=== PATIENT | female | born 1980 | race African-American/Black ===

== ENCOUNTER 2018-12-27 13:06 | Emergency (ER) | payer MEDICAID ==
[~2018-12-27] VITALS: Ht 162.6 cm; Wt 79.8 kg
[~2018-12-27 13:06] MED LIST: ASACOL HD800 MG ORAL
[2018-12-27 13:14] VITALS: BP 130/69
--- NOTE | 2018-12-27 13:19 | NUR ---
ED Nurse Note: patient walked into ED from home due to left earache since this morning. patient is alert awake x4 ambulatory, breathing even and unlabored
--- NOTE | 2018-12-27 13:27 | Emergency Room Report ---
History of Present Illness General Chief Complaint: Earache Source: Patient Present Illness HPI 38-year-old female presents to the emergency department complaining of 9 out of 10 in severity progressive pain in the left ear since this morning. Patient reports last few days she had upper respiratory symptoms with nasal congestion, rhinorrhea and cough. Patient reports subjective fevers and chills. Patient states that she has muffled hearing out of the affected ear. Patient denies headache, dizziness, tinnitus, swollen tender lymph nodes, neck pain/stiffness or photophobia. Patient denies trauma to the ear. She states she has not been trying any bgrv-dtn-lvsvodo medications and therefore has not found any relieving factors. Patient reports bending forward can exacerbate her symptom of pressure sensation. Allergies: Coded Allergies: No Known Allergies (Unverified , 09/01/13) Patient History Past Surgical History: unable to obtain Pertinent Family History: none Last Menstrual Period: 12/25/18 Now: No Reviewed Nursing Documentation: PMH: Agreed; PSxH: Agreed Nursing Documentation-PMH Past Medical History: No History, Except For Hx Gastrointestinal Problems: Yes - ULCERATIVE COLITIS Review of Systems All Other Systems: negative except mentioned in HPI Physical Exam Vital Signs Date Time Temp Pulse Resp B/P (MAP) Pulse Ox O2 Delivery O2 Flow Rate FiO2 12/27/18 13:14 98.1 84 20 130/69 97 Room Air Sp02 EP Interpretation: reviewed, normal General Appearance: no apparent distress, alert, GCS 15, non-toxic Head: normocephalic, atraumatic Eyes: bilateral eye normal inspection, bilateral eye PERRL ENT: hearing grossly normal, normal voice, other - LEft TM erythematous and bulging, some congestion noted behind the memebrane, no perforation, normal canal. Neck: full range of motion, no meningismus Respiratory: chest non-tender, lungs clear, normal breath sounds, no respiratory distress, no wheezing, speaking full sentences Cardiovascular #1: regular rate, rhythm, no edema Musculoskeletal: back normal, gait/station normal, normal range of motion Neurologic: alert, oriented x3, responsive, motor strength/tone normal, sensory intact, normal gait, speech normal, grossly normal Psychiatric: judgement/insight normal Skin: normal color, no rash, warm/dry, well hydrated Lymphatic: no adenopathy Medical Decision Making PA Attestation Dr. Chaparro is my supervising Physician whom patient management has been discussed with. Diagnostic Impression: Primary Impression: Otitis media ER Course 38-year-old female presents to the emergency department complaining of 9 out of 10 in severity progressive pain in the left ear since this morning. Patient reports last few days she had upper respiratory symptoms with nasal congestion, rhinorrhea and cough. Patient reports subjective fevers and chills. Patient states that she has muffled hearing out of the affected ear. Patient denies headache, dizziness, tinnitus, swollen tender lymph nodes, neck pain/stiffness or photophobia. Patient denies trauma to the ear. She states she has not been trying any wzif-ovr-cbqtpep medications and therefore has not found any relieving factors. Patient reports bending forward can exacerbate her symptom of pressure sensation. Ddx considered but are not limited to OM, OE, mastoiditis, TM perforation, FB Vital signs: are WNL, pt. is afebrile H&PE are most consistent with otitis media with moderate nasal/ sinus congestion. ORDERS: none required at this time, the diagnosis is clinical ED INTERVENTIONS: None required at this time. DISCHARGE: At this time pt. is stable for d/c to home. With PO ABX. Will provide printed patient care instructions, and any necessary prescriptions. Care plan and follow up instructions have been discussed with the patient prior to discharge. Last Vital Signs Date Time Temp Pulse Resp B/P (MAP) Pulse Ox O2 Delivery O2 Flow Rate FiO2 12/27/18 13:14 98.1 84 20 130/69 97 Room Air Disposition: HOME, SELF-CARE Condition: Stable Departure Forms: Return to Work Return to Work Date: December 29, 2018 Work Restrictions: None Other Restrictions: May return Sooner if Symptoms have resolved. Return to Full Activity: December 29, 2018 Patient Instructions: Otitis Media, Adult, [id number] Additional Instructions: Take medications as directed. Follow up with a Primary Care Provider in 3-5 days, even if your symptoms have resolved. --Please review list of primary care clinics, if you do not already have a primary care provider Return sooner to ED if new symptoms occur, or current symptoms become worse. - Please note that this Emergency Department Report was dictated using [employer] software, occasionally this can lead to erroneous entry secondary to interpretation by the dictation equipment. Becky Estes Dec 27, 2018 13:27
[2018-12-27] MEDS ORDERED: TYLENOL EXTRA500 MG ORAL (13:28)
[2018-12-27] MEDS ORDERED: NEXAFED30 MG ORAL (13:28)
[2018-12-27] MEDS ORDERED: AUGMENTIN 875-1 EAC1 ORAL (13:28)
[2018-12-27 13:37] VITALS: BP 130/69
--- NOTE | 2018-12-27 13:37 | NUR ---
ER DISCHARGE NOTE: Patient is cleared to be discharged per ERMD, pt is aox4, on room air, with stable vital signs. pt was given dc and prescription instructions, pt was able to verbalize understanding, pt id band removed without complications. pt is able to ambulate with steady gait. pt took all belongings.
== END 2018-12-27 13:37 | disposition home or self-care (01) ==
LOC: EMR 13:25
DX: H66.92 Otitis media, unspecified, left ear (principal); R05 Cough
CPT/HCPCS: 99282

== ENCOUNTER 2020-09-05 09:32 | Emergency (ER) | payer MEDICAID ==
[~2020-09-05] VITALS: Ht 162.6 cm; Wt 80.7 kg
[~2020-09-05 09:32] MED LIST changes: +AUGMENTIN 875-1 EAC1 ORAL; +NEXAFED30 MG ORAL; +TYLENOL EXTRA500 MG ORAL
--- NOTE | 2020-09-05 10:10 | NUR ---
ED Nurse Note: pt states she woke up with muscle ache and painful to move left shoulder since thursday.denies dyspnea, fever or cough. no n/v a/ox4 speaks full sentences easily.
[2020-09-05 10:16] VITALS: BP 128/84
[2020-09-05] MEDS ORDERED: TYLENOL EXTRA500 MG ORAL (11:39)
[2020-09-05] MEDS ORDERED: ROBAXIN-750750 MG PO (11:39)
--- NOTE | 2020-09-05 11:39 | Emergency Room Report ---
History of Present Illness General Chief Complaint: Pain Source: Patient Present Illness HPI Patient is a 40-year-old -Polish female with no prior medical history who presents with complaint of left shoulder pain, atraumatic, x3 days. She states that the shoulder pain is worse at night and upon waking up. She tried some stretches which temporarily alleviated her pain. Has not tried any medication at home She denies chest pain, abdominal pain, flank pain, trauma, nausea, vomiting, diarrhea, melena, hematochezia, hemoptysis, fever, numbness, paresthesia or any other symptoms The patient's symptoms were gradual onset, severity was moderate, duration since 3 days. Quality: "Knots", aching Past medical history: Denies Past surgical history: Right thumb surgery Smoking: Denies Alcohol use: Denies Drug use: Denies Review of systems: CONST: No fevers or chills, No night sweats PULMONARY: No productive cough, No shortness of breath CARDIAC: No chest pain, No palpitations GI: No vomiting, No diarrhea , No melena_or_BRBPR : No dysuria, No hematuria, No discharge NEURO: No new_focal_weakness_or_numbness, No confusion, No vision changes 14 point Review of Systems is otherwise negative except per HPI Physical Exam: GENERAL: Awake_alert_ nontoxic, no acute distress Spo2 98% on RA -normal EYES: Extraocular muscles are intact. Conjunctivae clear. Lids without swelling ENT: External nose and ear normal_in_appearance. Oropharynx clear. Head_atraumatic, Moist_oral_mucosa NECK: No JVD. No meningismus. No thyromegaly. Supple. Trachea midline RESP: Normal respiratory effort. Symmetric rise. No stridor. Clear_to_auscultation_No_rales_No_wheezes CARDIAC: Regular rate and regular rhytm. No_significant pedal edema. ABDOMEN: Soft. Nondistended. Nontender_No_rebound_or_guarding. MSK: Normal muscle tone, without rigidity. Extremities without asymmetric deformity or swelling. Upper extremity exam: Left Tenderness to palpation of left scapular ridge with hypertonicity of the trapezius muscle Elbow: No swelling / effusion appreciated, no significant pain with passive range of motion Wrist: No swelling / effusion appreciated, no significant pain with passive range of motion Lateral epicondyle: no tenderness / swelling / ecchymoses Medial epicondyle: no tenderness / swelling / ecchymoses Radial pulse: 2+ Capillary refill: <3 seconds in all fingers All fingers: full range of motion without any tenderness / swelling / deformity / evidence of infection Scaphoid: no tenderness / swelling / ecchymoses, no pain with axial loading of the thumb Radian / Median / Ulnar nerves: all intact (finger opposition, finger adduction / abduction, thumb dorsiflexion) Sensation intact to light touch: in all fingers Strength 5/5 with: wrist dorsi / volar flexion, 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 No visible cyanosis or pallor NEUROLOGIC: Alert, oriented x4. Motor_and_sensation_grossly_intact. No truncal ataxia. Gait_normal Psych: Normal mood and affect, normal judgment and insight - COORDINATION OF CARE Case was discussed with: Patient Any imaging that were ordered were interpreted as part of the medical decision making: Medical Decision Making/Plan: Differential diagnosis includes musculoskeletal pain, fracture, dislocation, compartment syndrome, arterial occlusion, nerve damage, among others. Patient is well-appearing, afebrile, neurologically intact in the left upper extremity. She is noted to have tenderness to palpation with hypertonicity of the left trapezius muscle. Compartments are soft and compressible. Distally the patient has capillary refill <2 seconds and strong pulses. There is no pallor or pain out of proportion to exam. There is no significant swelling, deformity, or report of significant dislocation that subsequently reduced. No evidence of arterial occlusion or injury. The associated joints have full range of motion without any significant pain or restriction in mobility. No evidence at this time of major ligamentous disruption. Patient is afebrile. Doubt septic joint Xrays of the left shoulder are within normal limits, compartments are soft, the patient is able to bear weight and has no neurologic deficits. No evidence of fracture, dislocation, foreign body, significant nerve damage, compartment syndrome at this time. I suspect musculoskeletal pain. We will give muscle relaxant and Tylenol. Patient was instructed not to take the muscle relaxant and drive as it is potentially sedating. Do not combine with alcohol. However, the patient was informed that occult fractures or foreign bodies are not always apparent on their first visit and understand to follow up with their regular doctor for a reevaluation within the next 2-3 days, to ensure their symptoms completely resolve. Pertinent results reviewed with the patient. I educated the patient on the current treatment plan including the risks, benefits, and alternatives. I also discussed the extent and limitations of the current evaluation. The patient expressed understanding and agreement with plan. I recommended PMD follow-up wi thin 1-2 days. Also advised that the patient return to the Emergency Department as soon as possible if they experience any new, persistent, or worsening symptoms. Allergies: Coded Allergies: No Known Allergies (Unverified , 09/01/13) COVID-19 Screening Contact w/high risk pt: No Experienced COVID-19 symptoms?: No COVID-19 Testing performed [employer]: Yes COVID-19 Screening: Negative COVID-19 COVID-19 Testing Source: [employer] Patient History Last Menstrual Period: 08/27/20 Now: No Nursing Documentation-PMH Past Medical History: No Stated History Hx Gastrointestinal Problems: Yes - ULCERATIVE COLITIS Physical Exam Vital Signs Date Time Temp Pulse Resp B/P (MAP) Pulse Ox O2 Delivery O2 Flow Rate FiO2 09/05/20 09:43 98.2 91 20 128/84 (99) 97 Room Air Sp02 EP Interpretation: reviewed, normal Medical Decision Making Diagnostic Impression: Primary Impression: Shoulder pain, left Additional Impression: Muscle spasm Other X-Ray Diagnostic Results Other X-Ray Diagnostic Results : VIN Scribkrys Text Left shoulder X-ray: Views:1 view(s) No fracture. Normal alignment. Soft tissues normal. Joint spaces normal. Indication: Pain Impression: no acute disease The X-ray(s) were independently viewed and interpreted contemporaneously - Electronically signed by Pealr paris DO Reevaluation Time: 11:38 Last Vital Signs Date Time Temp Pulse Resp B/P (MAP) Pulse Ox O2 Delivery O2 Flow Rate FiO2 09/05/20 10:16 91 20 128/84 97 Room Air 09/05/20 09:43 98.2 Status: improved Disposition: HOME, SELF-CARE Admit Decision Time: 11:38 Condition: Stable Scripts Acetaminophen* (TYLENOL EXTRA STRENGTH*) 500 Mg Tablet 500 MG ORAL Q8H PRN for Prn Headache/Temp > 101, #30 TAB 0 Refills Prov: Pearl Chery D.O. 09/05/20 Methocarbamol* (ROBAXIN-750*) 750 Mg Tablet 750 MG PO TID, #21 TAB 0 Refills Prov: Pearl Chery D.O. 09/05/20 Patient Instructions: Muscle Cramps and Spasms, [id number], Muscle Pain, Adult Additional Instructions: Instructions for patient/zigzagger: Follow up with your physician in 1-2 days. Follow-up with your doctor sooner if your condition requires a more timely clinical reevaluation. Return to the emergency department immediately if you feel that your condition is worsening or if you have any new or concerning symptoms. Review your discharge instructions and take any prescriptions given as instructed. [facility] PROVIDES FREE OR LOW-COST HEALTH SERVICES TO PEOPLE WHO CAN SHOW PROOF THAT THEY LIVE IN [facility]. TO FIND MORE CLINICS PARTNERED WITH [facility] TO PROVIDE SERVICE, PLEASE CALL . Pearl Chery D.O. Sep 05, 2020 11:39
[2020-09-05 11:50] VITALS: BP 136/78
--- NOTE | 2020-09-05 11:50 | NUR ---
ED Nurse Note: Pt cleared by health care Provider for discharge. DC instructions/prescription was given and explained to pt and verbalized understanding of teachings. All medical devices such as ID band removed. Pt is AAO x4, ambulatory and left with all personal belongings.
--- NOTE | 2020-09-05 16:18 | Diagnostic Imaging Report ---
Indication: Left shoulder pain Technique: 3 views of the left shoulder Comparison: none Findings: No acute fractures. No dislocations. Joint spaces are preserved. Impression: Negative
== END 2020-09-05 11:50 | disposition home or self-care (01) ==
LOC: EMR 11:25
DX: M25.512 Pain in left shoulder (principal); M62.838 Other muscle spasm
CPT/HCPCS: 73030; Z7502; 99283